=== PATIENT | female | born 1985 | race Two or more races ===

== ENCOUNTER 2020-10-15 10:53 | Emergency (ER) | payer OTHER ==
[~2020-10-15] VITALS: Ht 152.4 cm; Wt 66.7 kg
[2020-10-15] MEDS ORDERED: VISTARIL25 MG PO (14:45)
== END 2020-10-15 14:56 | disposition home or self-care (01) ==
LOC: ER 10:53
DX: B34.9 Viral infection, unspecified (principal); Z20.828 Contact with and (suspected) exposure to other viral communicable diseases

== ENCOUNTER 2023-05-05 16:13 | Inpatient (IN) | payer OTHER ==
[~2023-05-05] VITALS: Ht 177.8 cm; Wt 3.6 kg
[~2023-05-05 16:13] MED LIST: VISTARIL25 MG PO
[2023-05-18] MEDS ORDERED: PRENATABS RX T1 EACH PO (18:18)
== END 2023-05-21 14:15 | disposition home or self-care (01) | DRG 788 ==
LOC: LDR 05-18 16:53 → OB/GYN 05-19 23:46
PROVIDERS: ADMIT Obstetrics & Gynecology; ATTEND Obstetrics & Gynecology
PROC: 3E033VJ Introduction of Other Hormone into Peripheral Vein, Percutaneous Approach (ICD-10-PCS; 2023-05-18)
PROC: 3E0P7VZ Introduction of Hormone into Female Reproductive, Via Natural or Artificial Opening (ICD-10-PCS; 2023-05-18)
PROC: 4A1HXCZ Monitoring of Products of Conception, Cardiac Rate, External Approach (ICD-10-PCS; 2023-05-18)
PROC: 10D00Z1 Extraction of Products of Conception, Low, Open Approach (ICD-10-PCS; principal; 2023-05-19 18:15)
DX: O62.1 Secondary uterine inertia (principal); Z3A.39 39 weeks gestation of pregnancy; Z37.0 Single live birth; Z20.822 Contact with and (suspected) exposure to COVID-19

== ENCOUNTER 2023-05-17 09:18 | Outpatient (CLI) | payer OTHER ==
[2023-05-18] MEDS ORDERED: PRENATABS RX T1 EACH PO (18:18)
== END 2023-05-17 10:24 | disposition home or self-care (01) ==
LOC: NST 09:18
PROVIDERS: ATTEND Obstetrics & Gynecology
DX: Z34.83 Encounter for supervision of other normal pregnancy, third trimester (principal)